=== PATIENT | male | born 1995 | race Caucasian/White ===

== ENCOUNTER 2018-10-29 21:22 | Emergency (ER) | payer SELFPAY ==
[2018-10-29] MEDS ORDERED: LET GEL TOPICAL 1 EA SYR TP ONE ×2 (21:32→21:33)
[2018-10-29] MEDS ORDERED: HYDROGEN PEROXIDE 236 ML BOTTLE TP ONE (21:33)
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
[2018-10-29 23:18] VITALS: BP 148/94
== END 2018-10-29 23:17 | disposition home or self-care (01) ==
LOC: EDUNIT#
PROC: 0JQ13ZZ Repair Face Subcutaneous Tissue and Fascia, Percutaneous Approach (ICD-10-PCS; principal; 2018-10-29)
DX: S01.81XA Laceration without foreign body of other part of head, initial encounter (principal); S02.2XXA Fracture of nasal bones, initial encounter for closed fracture; V00.131A Fall from skateboard, initial encounter; Y92.480 Sidewalk as the place of occurrence of the external cause